=== PATIENT | male | born 1985 | race Two or more races ===

== ENCOUNTER 2021-03-20 23:58 | Emergency (ER) | payer SELFPAY | END 2021-03-21 03:25 | disposition home or self-care (01) | LOC: JD.ED 23:58 | DX: B34.9 Viral infection, unspecified (principal); E66.9 Obesity, unspecified; Z68.45 Body mass index [BMI] 70 or greater, adult; Z20.822 Contact with and (suspected) exposure to COVID-19 | CPT/HCPCS: 71045; 71045-26; 87804; 99283-25; U0002 ==

== ENCOUNTER 2022-08-13 11:13 | Emergency (ER) | payer BC ==
[2022-08-13] MEDS ORDERED: Sodium Chloride 0.9% 10 ML Syringe FLUSH PRN (11:46)
[2022-08-13] MEDS ORDERED: Sodium Chloride 0.9% 1,000 ML IV ONE (11:46)
[2022-08-13 12:18] LABS: BASOPHILS ABSOLUTE AUTO 0.04 K/mm3 (0.01-0.08); BASOPHILS PERCENT AUTO 0.8 % (0.1-1.2); EOSINOPHILS ABSOLUTE AUTO 0.12 K/mm3 (0.04-0.54); EOSINOPHILS PERCENT AUTO 2.5 (0.8-7.0); HEMATOCRIT 42.7 % (40.1-51.0); IMMATURE GRAN ABSOLUTE AUTO 0.01 K/mm3 (0.00-0.10); IMMATURE GRAN PERCENT AUTO 0.2 % (<=1.0); LYMPHOCYTES ABSOLUTE AUTO 1.28 K/mm3 (1.32-3.57); LYMPHOCYTES PERCENT AUTO 26.8 % (21.8-53.1); MEAN CORPUSCULAR HEMOGLOBIN 32.5 pg (25.7-32.2); MEAN CORPUSCULAR VOLUME 95.7 fl (79.0-92.2); MEAN PLATELET VOLUME 10.3 fl (9.4-12.3); MONOCYTES ABSOLUTE AUTO 0.56 K/mm3 (0.30-0.82); MONOCYTES PERCENT AUTO 11.7 % (5.3-12.2); NEUTROPHILS ABSOLUTE AUTO 2.76 K/mm3 (1.78-5.38); PLATELET COUNT,PLT 252 K/mm3 (163-337); RED BLOOD CELL COUNT 4.46 M/mm3 (4.63-6.08); WHITE BLOOD CELL COUNT,WBC 4.77 K/mm3 (4.23-9.07)
[2022-08-13 12:22] LABS: HEMOGLOBIN 14.5 gm/dl (13.7-17.5)
[2022-08-13 12:39] LABS: A/G RATIO 1.3 (1-2); ALANINE AMINOTRANSFERASE,ALT 36 U/L (16-63); ALKALINE PHOSPHATASE 77 U/L (46-116); ANION GAP 10.1 (5-15); ASPARTATE AMNIOTRANSFERASE,AST 19 U/L (15-37); BILIRUBIN TOTAL 0.9 mg/dL (0.2-1.0); BLOOD UREA NITROGEN,BUN 9 mg/dL (7-18); BUN/CREATININE RATIO 8.2 (14-18); C-REACTIVE PROTEIN <0.2 mg/dL (<1.0); CALCIUM 9.1 mg/dL (8.5-10.1); CARBON DIOXIDE,CO2 27 mEq/L (21-32); CHLORIDE,CL 105 mEq/L (98-107); CREATININE 1.1 mg/dL (0.7-1.3); EST CRCL DRUG DOSING (CG) 99.94 mL/min; ESTIMATED GFR 88 mL/min (>60); GLUCOSE RANDOM 102 mg/dL (70-99); MAGNESIUM 1.7 mg/dL (1.8-2.4); POTASSIUM,K 4.1 mEq/L (3.5-5.1); SODIUM,NA 138 mEq/L (136-145)
[2022-08-13] MEDS ORDERED: Iopamidol 612 MG/ML 100 ML Bottle IVPUSH ONE (12:43)
== END 2022-08-13 13:50 | disposition home or self-care (01) ==
LOC: JD.ED 11:13
DX: R10.84 Generalized abdominal pain (principal); E66.9 Obesity, unspecified; Z68.41 Body mass index [BMI] 40.0-44.9, adult
CPT/HCPCS: 36415; 74177; 80053; 83735; 85025; 86140; 99284; J3490; Q9967